=== PATIENT | female | born 1995 | race American Indian/Alaskan Native ===

== ENCOUNTER 2017-08-15 01:33 | Emergency (ER) | payer OTHER ==
[2016-11-17 10:45] VITALS: Wt 82.1 kg
[~2017-08-15 01:33] MED LIST: ACET-1718 PO; DOCU-416 PO; IBUP800T37 PO; PREN-127 PO
--- NOTE | 2017-08-15 01:37 | ER Report ---
History and Physical Time Seen By : 01:37 HPI/ROS CHIEF COMPLAINT: Headache, pain in eyes HISTORY OF PRESENT ILLNESS: 22-year-old female presents ambulatory to the ER complaining of a headache for 3 days. She notes pain in around her eyes. She notes it exacerbated by using her phone. She is stopped using her phone. She has no infectious symptoms such as fever, chills, cough, rhinitis or sore throat. She describes the headache as a dull ache behind and around her eyes. She's not taken any Tylenol or ibuprofen to alleviate the symptoms. She is 9 months . She is not breast-feeding. She notes no numbness, tingling or weakness in any of her extremities. She notes no visual changes. She denies nausea or vomiting. She thinks she might need glasses. REVIEW OF SYSTEMS: Respiratory: No cough, no dyspnea. Cardiovascular: No chest pain, no palpitations. Gastrointestinal: No vomiting, no abdominal pain. Musculoskeletal: No back pain. Allergies: Coded Allergies: No Known Drug Allergies (Unverified , 08/15/17) Home Meds Active Scripts Tramadol Hcl (TRAMADOL HCL) 50 Mg Tablet, 1 TAB PO Q4-6H Y for PAIN, #15 MG TAKE ONE TO TWO TABLETS BY MOUTH EVERY FOUR TO SIX HOURS NEEDED Prov:WES ONEILL DO 08/15/17 Reported Medications Multivitamin (MULTIVITAMINS) 1 Each Capsule, 1 EACH PO QDAY, CAPSULE 08/15/17 Discontinued Reported Medications Vits W-Ca,Fe,Fa(<1MG) ( VITAMINS) 1 Each Tablet, 1 EACH PO DAILY, TAB 10/04/16 Discontinued Scripts Docusate Sodium (COLACE) 100 Mg Capsule, 100 MG PO BID, #60 CAPSULE 0 Refills Prov:RAMONA VERA MD 11/18/16 Ibuprofen (IBUPROFEN) 800 Mg Tablet, 1 TAB PO Q8H Y for pain, #40 TAB 0 Refills TAKE WITH FOOD EVERY 8 HOURS Prov:RAMONA VERA MD 11/18/16 Acetaminophen With Codeine # 3 (ACETAMINOPHEN-COD #3 TABLET) 1 Each Tablet, 1-2 EACH PO Q4H Y for pain, #30 TAB 0 Refills Take 1-2 tablets as needed for pain no closer than every 4 hours. Prov:RAMONA VERA MD 11/18/16 Reviewed Nurses Notes: Yes Old Medical Records Reviewed: Yes Hx Smoking: No Smoking Status: Never Smoker Exposure to Second Hand Smoke?: No Hx Substance Use Disorder: No Hx Alcohol Use: No Constitutional Vital Sign - Last 24 Hours 08/15/17 08/15/17 08/15/17 08/15/17 01:38 02:00 02:03 02:18 Temp 98.7 Pulse 83 98 102 Resp 16 B/P (MAP) 126/86 123/92 (102) Pulse Ox 95 97 98 O2 Delivery Room Air 08/15/17 08/15/17 08/15/17 08/15/17 02:30 02:33 02:45 02:48 Pulse 99 105 B/P (MAP) 111/72 (85) 139/88 (105) Pulse Ox 99 100 08/15/17 08/15/17 08/15/17 02:53 03:00 03:23 Pulse 103 ??? B/P (MAP) 122/87 (99) Pulse Ox 98 97 Physical Exam General Appearance: The patient is alert, has no immediate need for airway protection and no current signs of toxicity. Vital signs stable, afebrile, pulse ox normal HEENT: Pupils equal and round no injection. No photophobia, eyes appear somewhat proptotic, TMs normal, oropharynx, the redness or exudate, mucous membranes are moist Respiratory: Chest is non tender, lungs are clear to auscultation. Cardiac: regular rate and rhythm Gastrointestinal: Abdomen is soft and non tender, no masses, bowel sounds normal. Musculoskeletal: Neck: Neck is supple and non tender. Extremities have full range of motion and are non tender. Skin: No rashes or lesions. 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 Graves' disease pharyngitis and sinusitis. Medical Decision Making Data Points Result Diagram: 08/15/17 0202 08/15/17 0202 Laboratory Hematology Test 08/15/17 02:02 Red Blood Count 5.16 M/uL (4.17-5.56) Mean Corpuscular Volume 82.8 fL (80.0-96.0) Mean Corpuscular Hemoglobin 29.2 pg (26.0-33.0) Mean Corpuscular Hemoglobin Concent 35.3 g/dL (32.0-36.0) Red Cell Distribution Width 13.6 % (11.5-14.5) Mean Platelet Volume 9.7 fL (7.2-11.1) Neutrophils (%) (Auto) 34.4 % (39.4-72.5) Lymphocytes (%) (Auto) 53.8 % (17.6-49.6) Monocytes (%) (Auto) 8.5 % (4.1-12.4) Eosinophils (%) (Auto) 1.5 % (0.4-6.7) Basophils (%) (Auto) 1.8 % (0.3-1.4) Nucleated RBC Relative Count (auto) 0.1 /100WBC Neutrophils # (Auto) 2.5 K/uL (2.0-7.4) Lymphocytes # (Auto) 3.9 K/uL (1.3-3.6) Monocytes # (Auto) 0.6 K/uL (0.3-1.0) Eosinophils # (Auto) 0.1 K/uL (0.0-0.5) Basophils # (Auto) 0.1 K/uL (0.0-0.1) Nucleated RBC Absolute Count (auto) 0.01 K/uL Erythrocyte Sedimentation Rate 17 mm/HOUR (0-20) Sodium Level 139 mmol/L (137-145) Potassium Level 3.5 mmol/L (3.5-5.0) Chloride Level 102 mmol/L (98-107) Carbon Dioxide Level 24 mmol/L (22-31) Blood Urea Nitrogen 12 mg/dl (7-18) Creatinine 0.80 mg/dl (0.52-1.04) Glomerular Filtration Rate Calc > 60.0 Random Glucose 101 mg/dl (75-110) Calcium Level 9.5 mg/dl (8.4-10.2) Total Bilirubin 1.0 mg/dl (0.2-1.3) Aspartate Amino Transf (AST/SGOT) 21 U/L (0-35) Alanine Aminotransferase (ALT/SGPT) 35 U/L (0-56) Alkaline Phosphatase 52 U/L (0-126) Total Protein 8.2 gm/dl (6.3-8.2) Albumin 4.4 g/dl (3.5-5.0) Human Chorionic Gonadotropin, Qual Negative (NEGATIVE) Chemistry Test 08/15/17 02:02 White Blood Count 7.3 k/uL (4.5-11.0) Red Blood Count 5.16 M/uL (4.17-5.56) Hemoglobin 15.1 g/dL (12.0-16.0) Hematocrit 42.8 % (34.0-47.0) Mean Corpuscular Volume 82.8 fL (80.0-96.0) Mean Corpuscular Hemoglobin 29.2 pg (26.0-33.0) Mean Corpuscular Hemoglobin Concent 35.3 g/dL (32.0-36.0) Red Cell Distribution Width 13.6 % (11.5-14.5) Platelet Count 227 K/uL (150-450) Mean Platelet Volume 9.7 fL (7.2-11.1) Neutrophils (%) (Auto) 34.4 % (39.4-72.5) Lymphocytes (%) (Auto) 53.8 % (17.6-49.6) Monocytes (%) (Auto) 8.5 % (4.1-12.4) Eosinophils (%) (Auto) 1.5 % (0.4-6.7) Basophils (%) (Auto) 1.8 % (0.3-1.4) Nucleated RBC Relative Count (auto) 0.1 /100WBC Neutrophils # (Auto) 2.5 K/uL (2.0-7.4) Lymphocytes # (Auto) 3.9 K/uL (1.3-3.6) Monocytes # (Auto) 0.6 K/uL (0.3-1.0) Eosinophils # (Auto) 0.1 K/uL (0.0-0.5) Basophils # (Auto) 0.1 K/uL (0.0-0.1) Nucleated RBC Absolute Count (auto) 0.01 K/uL Erythrocyte Sedimentation Rate 17 mm/HOUR (0-20) Glomerular Filtration Rate Calc > 60.0 Calcium Level 9.5 mg/dl (8.4-10.2) Total Bilirubin 1.0 mg/dl (0.2-1.3) Aspartate Amino Transf (AST/SGOT) 21 U/L (0-35) Alanine Aminotransferase (ALT/SGPT) 35 U/L (0-56) Alkaline Phosphatase 52 U/L (0-126) Total Protein 8.2 gm/dl (6.3-8.2) Albumin 4.4 g/dl (3.5-5.0) Human Chorionic Gonadotropin, Qual Negative (NEGATIVE) EKG/Imaging Imaging Results: CT scan of the head was obtained. The results of the study are HEAD CT: Indication: Persistent frontal headache. Technique: Contiguous axial sections were obtained from the base to the vertex without contrast enhancement. One of the following dose optimization techniques was utilized in the performance of this exam: Automated exposure control; adjustment of the mA and/ or kV according to the patient's size; or use of an iterative reconstruction technique. Specific details can be referenced in the facility's radiology CT exam operational policy. Comparison: None. Findings: There is no evidence of intra-axial or extra-axial hemorrhage. No focal areas of decreased or increased attenuation are identified. There is no evidence of mass, edema, or shift of the midline structures. The size, shape, and configuration of the ventricular system are normal. The skeletal structures are intact and unremarkable. The visualized paranasal sinuses and mastoid air cells are clear. Impression: Unremarkable unenhanced head CT. The study was read by the radiologist. I viewed the images myself on the PACS system. ED Course/Re-evaluation ED Course Patient was admitted to an examination room. H&P was done. The dental diagnoses was considered. Patient with nonfocal neurologic examination. Patient with persistent headache for 3 days in and around her eyes. She notes some visual changes, denies scotoma. Diagnostic evaluation is undertaken. Patient's treated with ibuprofen and Tylenol by mouth. CT scan is unremarkable. Her white blood cell count, sedimentation rate are all unremarkable. Patient advised to follow-up with ophthalmology and primary care for further evaluation and treatment. She's given a prescription of tramadol for temporary pain relief. Decision to Disposition Date: Aug 15, 2017 Decision to Disposition Time: 02:54 Depart Departure Latest Vital Signs Vital Signs Date Time Temp Pulse Resp B/P (MAP) Pulse Ox O2 Delivery O2 Flow Rate FiO2 08/15/17 03:23 ??? 97 08/15/17 03:00 122/87 (99) 08/15/17 01:38 98.7 16 Room Air Impression: Primary Impression: Headache around the eyes Condition: Improved Disposition: HOME OR SELF-CARE Referrals: RESHMA ARRIETA MD, SHAUN MD New Scripts Tramadol Hcl (TRAMADOL HCL) 50 Mg Tablet 1 TAB PO Q4-6H Y for PAIN, #15 MG TAKE ONE TO TWO TABLETS BY MOUTH EVERY FOUR TO SIX HOURS NEEDED Prov: WES ONEILL DO 08/15/17 Patient Instructions: Acute Headache (ED) Additional Instructions: Use Tylenol and ibuprofen as needed for pain relief Follow-up with Dr. Arrieta Follow-up with Dr. Pedro the eye doctor for evaluation for glasses WES ONEILL DO Aug 15, 2017 01:37
[2017-08-15] MEDS ORDERED: MULT1CAP59 PO (01:43)
[2017-08-15] MEDS ORDERED: ACETAMINOPHEN 325 MG TAB PO ONE (01:55)
[2017-08-15] MEDS ORDERED: IBUPROFEN 600 MG TAB PO ONE (01:55)
[2017-08-15 02:16] LABS: PLATELET COUNT, AUTOMATED 227 K/uL (150-450)
[2017-08-15 03:00] VITALS: BP 122/87
--- NOTE | 2017-08-15 03:21 | RADIOLOGY IMAGING REPORT ---
FACILITY: [facility] PATIENT NAME: Yue Larsen : 1995 MR: [id number] V: [id number] EXAM DATE: ORDERING PHYSICIAN: WES ONEILL TECHNOLOGIST: [place] [facility] [place]: Yue Larsen : 1995 Visit/Account:[id number] Date of Sevice: 08/15/[address]: Indication: Persistent frontal headache. Technique: Contiguous axial sections were obtained from the base to the vertex without contrast enhan cement. One of the following dose optimization techniques was utilized in the performance of this exam: Autom ated exposure control; adjustment of the mA and/or kV according to the patient's size; or use of an i terative reconstruction technique. Specific details can be referenced in the facility's radiology CT exam operational policy. Comparison: None. Findings: There is no evidence of intra-axial or extra-axial hemorrhage. No focal areas of decreased or increased attenuation are identified. There is no evidence of mass, edema, or shift of the midline structures. The size, shape, and configuration of the ventricular system are normal. The skeletal st ructures are intact and unremarkable. The visualized paranasal sinuses and mastoid air cells are ebony r. Impression: Unremarkable unenhanced head CT. Report Dictated By: Daron Ca MD at 08/15/2017 3:02 AM Report E-Signed By: Daron Ca MD at 08/15/2017 3:04 AM WSN:[id number]
[2017-08-15] MEDS ORDERED: TRAM-420 PO (03:28)
== END 2017-08-15 03:31 | disposition home or self-care (01) ==
LOC: ER 02:08
DX: R51 Headache (principal)
CPT/HCPCS: 36415; 70450; 82040; 82247; 82310; 82374; 82435; 82565; 82947; 84075; 84132; 84155; 84295; 84443; 84450; 84460; 84520; 84703; 85025; 85651; 99283

== ENCOUNTER 2018-07-03 15:29 | Emergency (ER) | payer OTHER ==
[2016-11-17 10:45] VITALS: Wt 85.7 kg
[~2018-07-03 15:29] MED LIST changes: +MULT1CAP59 PO; +TRAM-420 PO
[2018-07-03 15:34] VITALS: BP 104/89
[2018-07-03] MEDS ORDERED: AMOX500T10 PO (15:51)
--- NOTE | 2018-07-03 15:51 | ER Report ---
History and Physical Time Seen By MD: 15:45 Hx. of Stated Complaint: SORE THROAT AND R SIDE EAR PAIN HPI/ROS CHIEF COMPLAINT: Sore throat ear pain HISTORY OF PRESENT ILLNESS: Edna 23-year-old female comes emergency department. When a sore throat ear pain she has a new child and is in daycare thinks the child may brought home some disease patient says for the last or 4 days been having sore throat no dysphonia no dysphagia some tenderness underneath her jaw line and right ear discomfort patient denies any fever chills or sweats nausea vomiting diarrhea or additional complaints noted REVIEW OF SYSTEMS: Respiratory: No cough, no dyspnea. Cardiovascular: No chest pain, no palpitations. Gastrointestinal: No vomiting, no abdominal pain. Musculoskeletal: No back pain. Remainder of the 14 system rev: Yes Allergies: Coded Allergies: No Known Drug Allergies (Unverified , 08/15/17) Home Meds Discontinued Reported Medications Multivitamin (MULTIVITAMINS) 1 Each Capsule, 1 EACH PO QDAY, CAPSULE 08/15/17 Discontinued Scripts Tramadol Hcl (TRAMADOL HCL) 50 Mg Tablet, 1 TAB PO Q4-6H PRN for PAIN, #15 MG TAKE ONE TO TWO TABLETS BY MOUTH EVERY FOUR TO SIX HOURS NEEDED Prov:WES ONEILL DO 08/15/17 Reviewed Nurses Notes: Yes Old Medical Records Reviewed: Yes Hx Smoking: No Smoking Status: Never Smoker Exposure to Second Hand Smoke?: No Hx Substance Use Disorder: No Hx Alcohol Use: No Constitutional Vital Sign - Last 24 Hours 07/03/18 15:34 Temp 98.0 Pulse 117 Resp 16 B/P (MAP) 104/89 Pulse Ox 98 O2 Delivery Room Air Physical Exam General appearance: Alert no distress. Respiratory: Chest is non tender, lungs are clear to auscultation. Cardiac: Regular rate and rhythm [ ] HEENT examination shows some mild erythema in the posterior pharynx no uvular deviation +1 to +2 submandibular lymph node lymphadenopathy bilaterally her right TM shows some mild induration is with a possible otitis media no uvular deviation again noted no cervical tenderness with range of motion no additional findings of note DIFFERENTIAL DIAGNOSIS: After history and physical exam differential diagnosis was considered for strep pharyngitis viral pharyngitis otitis media Medical Decision Making ED Course/Re-evaluation ED Course Due to physical exam findings consistent with probable otitis media and strep pharyngitis we will avoid the diagnostic testing we'll go ahead and treat her accordingly follow up with primary care Decision to Disposition Date: Jul 03, 2018 Decision to Disposition Time: 15:50 Depart Departure Latest Vital Signs Vital Signs Date Time Temp Pulse Resp B/P (MAP) Pulse Ox O2 Delivery O2 Flow Rate FiO2 07/03/18 15:34 98.0 117 16 104/89 98 Room Air Impression: Primary Impression: Strep pharyngitis Additional Impression: Otitis media Condition: Condition Unchanged Disposition: HOME OR SELF-CARE Referrals: RESHMA CARMONA MD 5 Days New Scripts Amoxicillin 500 Mg Tab (AMOXICILLIN 500 MG TAB) 500 Mg Tablet 2 TAB PO Q12H, #56 TAB TAKE TWO TABLETS BY MOUTH EVERY 12 HOURS Prov: COMPA MCKEON MD 07/03/18 Patient Instructions: Strep Throat (DC) Problem Qualifiers COMPA MCKEON MD Jul 03, 2018 15:51
== END 2018-07-03 16:02 | disposition home or self-care (01) ==
LOC: ER 15:51
DX: J02.0 Streptococcal pharyngitis (principal); H66.91 Otitis media, unspecified, right ear
CPT/HCPCS: 99282

== ENCOUNTER → 2019-01-01 | Outpatient (CLI) | payer OTHER ==
[2016-11-17 10:45] VITALS: BMI 34.6
[~2019-01-01] MED LIST changes: +AMOX500T10 PO
--- NOTE | 2019-01-01 11:10 | RADIOLOGY IMAGING REPORT ---
FACILITY: [facility] PATIENT NAME: Yue Larsen : 1995 MR: [id number] V: [id number] EXAM DATE: ORDERING PHYSICIAN: LO ROSENBERG TECHNOLOGIST: Location: [facility] Patient: Yue Larsen : 1995 Visit/Account:[id number] Date of Sevice: 01/01/2019 US ABD LIMITED ULTRASOUND HISTORY: Ventral wall hernia COMPARISON: None. FINDINGS: Multiple images were obtained over the intra-abdominal wall in the periumbilical region both with and without a Valsalva maneuver demonstrating no evidence of a ventral hernia in this location. No evid ence of a subcutaneous mass was demonstrated. The patient did express tenderness in this location du ring scanning IMPRESSION: No evidence of a ventral hernia in the periumbilical region. Report Dictated By: Khadijah Campos MD at 01/01/2019 10:58 AM Report E-Signed By: Khadijah Campos MD at 01/01/2019 11:00 AM [email or web address]
== END ==
LOC: US 01:41
PROVIDERS: ATTEND Family Medicine
DX: K43.9 Ventral hernia without obstruction or gangrene (principal)
CPT/HCPCS: 76705

== ENCOUNTER 2019-01-05 05:56 | Emergency (ER) | payer OTHER ==
[2016-11-17 10:45] VITALS: Wt 85.3 kg
--- NOTE | 2019-01-05 06:00 | ER Report ---
History and Physical Time Seen By MD: 05:56 HPI/ROS CHIEF COMPLAINT: Abdominal pain HISTORY OF PRESENT ILLNESS: 23-year-old female presents ambulatory to the ER complaining of crampy epigastric pain for 2 weeks. She's been having diarrhea for 2 days. She is concerned that the color has turned red/orange. She notes no fever or chills. She's had no recent antibiotics. She denies recent travel or exposure to ill contacts. Last menstrual period was 2 weeks ago. She notes no alleviating or exacerbating factors for the pain. She notes some mild nausea but no vomiting. She denies dysuria, frequency or hematuria. REVIEW OF SYSTEMS: Respiratory: No cough, no dyspnea. Cardiovascular: No chest pain, no palpitations. Gastrointestinal: As above Musculoskeletal: No back pain. [ ] [DIFFERENTIAL DIAGNOSIS: After history and physical exam differential diagnosis was considered for] [trauma in an auto accident] [including intracranial, sp inal, intrathoracic and intra-abdominal injuries.] Allergies: Coded Allergies: No Known Drug Allergies (Unverified , 01/05/19) Home Meds Discontinued Scripts Amoxicillin 500 Mg Tab (AMOXICILLIN 500 MG TAB) 500 Mg Tablet, 2 TAB PO Q12H, #56 TAB TAKE TWO TABLETS BY MOUTH EVERY 12 HOURS Prov:COMPA MCKEON MD 07/03/18 Reviewed Nurses Notes: Yes Old Medical Records Reviewed: Yes Hx Smoking: No Smoking Status: Never Smoker Exposure to Second Hand Smoke?: No Hx Substance Use Disorder: No Hx Alcohol Use: No Constitutional Vital Sign - Last 24 Hours 01/05/19 07:06 Pulse 89 B/P (MAP) 106/62 (77) Pulse Ox 98 Physical Exam General Appearance: The patient is alert, has no immediate need for airway protection and no current signs of toxicity. Vital signs stable, low-grade fever 99.1, pulse ox normal Eyes: Pupils equal and round no injection. Respiratory: Chest is non tender, lungs are clear to auscultation. Cardiac: regular rate and rhythm Gastrointestinal: Abdomen is soft and mild epigastric tenderness, no masses, bowel sounds hyperactive, no CVA tenderness Musculoskeletal: Neck: Neck is supple and non tender. Extremities have full range of motion and are non tender. Skin: No rashes or lesions. DIFFERENTIAL DIAGNOSIS: After history and physical exam differential diagnosis was considered for abdominal pain including but not limited to appendicitis, cholecystitis, gastritis and urinary tract infection. Medical Decision Making Data Points Result Diagram: 01/05/19 0611 01/05/19 0611 Laboratory Hematology Test 01/05/19 06:11 White Blood Count 5.7 k/uL (4.5-11.0) Red Blood Count 4.78 M/uL (4.17-5.56) Hemoglobin 13.9 g/dL (12.0-16.0) Hematocrit 39.7 % (34.0-47.0) Mean Corpuscular Volume 83.0 fL (80.0-96.0) Mean Corpuscular Hemoglobin 29.2 pg (26.0-33.0) Mean Corpuscular Hemoglobin Concent 35.1 g/dL (32.0-36.0) Red Cell Distribution Width 12.9 % (11.5-14.5) Platelet Count 218 K/uL (150-450) Mean Platelet Volume 9.4 fL (7.2-11.1) Neutrophils (%) (Auto) 47.3 % (39.4-72.5) Lymphocytes (%) (Auto) 41.7 % (17.6-49.6) Monocytes (%) (Auto) 8.4 % (4.1-12.4) Eosinophils (%) (Auto) 1.3 % (0.4-6.7) Basophils (%) (Auto) 1.3 % (0.3-1.4) Nucleated RBC Relative Count (auto) 0.1 /100WBC Neutrophils # (Auto) 2.7 K/uL (2.0-7.4) Lymphocytes # (Auto) 2.4 K/uL (1.3-3.6) Monocytes # (Auto) 0.5 K/uL (0.3-1.0) Eosinophils # (Auto) 0.1 K/uL (0.0-0.5) Basophils # (Auto) 0.1 K/uL (0.0-0.1) Nucleated RBC Absolute Count (auto) 0.01 K/uL Chemistry Test 01/05/19 06:11 Sodium Level 139 mmol/L (137-145) Potassium Level 3.6 mmol/L (3.5-5.0) Chloride Level 105 mmol/L (98-107) Carbon Dioxide Level 24 mmol/L (22-31) Blood Urea Nitrogen 14 mg/dl (7-18) Creatinine 0.70 mg/dl (0.52-1.04) Glomerular Filtration Rate Calc > 60.0 Random Glucose 98 mg/dl (75-110) Calcium Level 9.3 mg/dl (8.4-10.2) Total Bilirubin 1.2 mg/dl (0.2-1.3) Aspartate Amino Transf (AST/SGOT) 23 U/L (0-35) Alanine Aminotransferase (ALT/SGPT) 29 U/L (0-56) Alkaline Phosphatase 44 U/L (0-126) Total Protein 8.3 g/dl (6.3-8.2) Albumin 4.4 g/dl (3.5-5.0) Amylase Level 84 U/L (0-110) Lipase 131 U/L (23-300) Human Chorionic Gonadotropin, Qual Negative (NEGATIVE) Urinalysis Test 01/05/19 05:56 Urine Color Yellow Urine Clarity Slightly-cloudy Urine pH 5.0 pH (4.8-9.5) Urine Specific [place] 1.028 Urine Protein Negative mg/dL (NEGATIVE) Urine Glucose (UA) Negative mg/dL (NEGATIVE) Urine Ketones Negative mg/dL (NEGATIVE) Urine Blood Negative (NEGATIVE) Urine Nitrite Negative (NEGATIVE) Urine Bilirubin Negative (NEGATIVE) Urine Urobilinogen Negative mg/dL (0.2-1.9) Urine Leukocyte Esterase Trace (NEGATIVE) Urine RBC 1 /HPF (0-2/HPF) Urine WBC 2 /HPF (0-5/HPF) Urine Squamous Epithelial Cells Many /LPF (</=FEW) Urine Transitional Epithelial Cells Few /LPF (NONE-FEW) Urine Bacteria Few /HPF (NONE-FEW) Urine Mucus Few /HPF (NONE-FEW) ED Course/Re-evaluation Clinical Indication for ER IV: Hydration, IV Access ED Course Patient course patient was minute to an examination room. H&P was done. The differential diagnosis was considered. Patient was treated with IV fluids and Zofran. She also received Toradol. Her abdominal pain is nearly resolved. She is a benign surgical examination. She is advised to follow-up with Dr. mcmahon if unimproved in 3-5 days. Decision to Disposition Date: Jan 05, 2019 Decision to Disposition Time: 07:08 Depart Departure Latest Vital Signs Vital Signs Date Time Temp Pulse Resp B/P (MAP) Pulse Ox O2 Delivery O2 Flow Rate FiO2 01/05/19 07:06 89 106/62 (77) 98 Impression: Primary Impression: Abdominal pain Additional Impression: Diarrhea Condition: Improved Disposition: HOME OR SELF-CARE Referrals: RESHMA CARMONA MD New Scripts No Active Prescriptions or Reported Meds Patient Instructions: Acute Diarrhea (ED), Clear Liquid Diet (ED) Additional Instructions: Follow clear liquid diet for 24-48 hours. Advance to Brenda diet, banana, rice, applesauce and toast Follow-up with primary care doctor for repeat if unimproved in 3-5 days Problem Qualifiers Primary Impression: Abdominal pain Abdominal location: upper abdomen, unspecified Qualified Codes: R10.10 - Upper abdominal pain, unspecified Additional Impression: Diarrhea Diarrhea type: unspecified type Qualified Codes: R19.7 - Diarrhea, unspecified WES ONEILL DO Jan 05, 2019 06:00
[2019-01-05] MEDS ORDERED: KETOROLAC 30 MG/ML VIAL IVP ONE (06:20)
[2019-01-05 06:24] LABS: PLATELET COUNT, AUTOMATED 218 K/uL (150-450)
[2019-01-05] MEDS ORDERED: ONDANSETRON 4 MG/2 ML VIAL IVP ONE (06:25)
[2019-01-05] MEDS ORDERED: NS(*) 0.9% 1000 ML BAG 1,000 ML IV ONE (06:25)
[2019-01-05 07:06] VITALS: BP 106/62
== END 2019-01-05 07:22 | disposition home or self-care (01) ==
LOC: ER 06:22
DX: R10.10 Upper abdominal pain, unspecified (principal); R19.7 Diarrhea, unspecified
CPT/HCPCS: 81001; 82150; 83690; 84703; 85025; 96361; 96374; 96375; 99284; J1885; J2405; J7030; 82040; 82247; 82310; 82374; 82435; 82565; 82947; 84075; 84132; 84155; 84295; 84450; 84460; 84520